=== PATIENT | male | born 1985 | race Caucasian/White ===

== ENCOUNTER 2018-08-09 08:16 | Day surgery (SDC) | payer BC ==
[~2018-08-09 08:16] MED LIST: Acetaminophen/HYDROcodone 325-5 MG Tab PO PRN; Lactated Ringers 1,000 ML IV SCH; ceFAZolin 2 GM in Premix Bag 1 BAG IV SCH
[2018-08-09] MEDS ORDERED: Lidocaine 2% 5 ML SDV ONE (09:14)
[2018-08-09] MEDS ORDERED: Ondansetron 4 MG/2 ML SDV ONE (09:14)
[2018-08-09] MEDS ORDERED: Midazolam 1 MG/ML 2 ML SDV ONE (09:14)
[2018-08-09] MEDS ORDERED: fentaNYL 250 MCG/5 ML SDV ONE (09:14)
[2018-08-09] MEDS ORDERED: ceFAZolin/Dextrose,Iso-Osmotic 2 GM/50 ML Duplex Bag IV ONE (09:14)
[2018-08-09] MEDS ORDERED: Propofol 200 MG/20 ML SDV ONE (09:14)
--- NOTE | 2018-08-09 09:35 | PCM.PREANE ---
Preanesthetic Assessment - Anesthesia/Transfusion/Family Hx Anesthesia History: Prior Anesthesia Without Reaction Family History of Anesthesia Reaction: No Transfusion History: No Prior Transfusion(s) - Review of Systems General: No Symptoms Pulmonary: No Symptoms Cardiovascular: No Symptoms Gastrointestinal: No Symptoms Neurological: No Symptoms Other: Reports: None - Physical Assessment NPO Status Date: 08/08/18 NPO Status Time: 21:52 O2 Sat by Pulse Oximetry: 96 Respiratory Rate: 18 Vital Signs: Last Vital Signs Temp 97.5 F 08/09/18 09:11 Pulse 76 08/09/18 09:11 Resp 18 08/09/18 09:11 BP 122/73 08/09/18 09:11 Pulse Ox 96 08/09/18 09:11 Height: 6 ft 1 in Weight: 90.718 kg ASA Class: 1 Mental Status: Alert & Oriented x3 Airway Class: Mallampati = 2 Dentition: Reports: Normal Dentition ROM/Head Extension: Full Lungs: Clear to Auscultation, Normal Respiratory Effort Cardiovascular: Regular Rate, Regular Rhythm - Allergies Allergies/Adverse Reactions: Allergies Allergy/AdvReac Type Severity Reaction Status Date / Time No Known Allergies Allergy Verified 05/23/18 19:46 - Blood Blood Available: No - Anesthesia Plan Pre-Op Medication Ordered: None - Acknowledgements Anesthesia Type Planned: General Anesthesia Pt an Appropriate Candidate for the Planned Anesthesia: Yes Alternatives and Risks of Anesthesia Discussed w Pt/Guardian: Yes Pt/Guardian Understands and Agrees with Anesthesia Plan: Yes Additional Comments: PMH: born 8+ weeks premature, had heart surgery at age 2-3 months, not followed by cardiology during childhood, no limitations on activity. Prednisone use was for skin rash due to industrial chemical [id number] longer on prednisone, PLAN: GET PreAnesthesia Questionnaire Cardiovascular History: Reports: Other (See Below) Musculoskeletal History: Reports: Fracture, Other (See Below) Other Musculoskeletal History: left femur fracture Neurological History: Reports: Headaches, Chronic Psychiatric History: Reports: Anxiety, Depression Dermatologic History: Reports: Other (See Below) Other Dermatologic History: contact dermatitis - Past Surgical History Head Surgeries/Procedures: Reports: None Cardiovascular Surgical History: Reports: Other (See Below) Other Cardiovascular Surgeries/Procedures: 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 Musculoskeletal Surgical History: Reports: Other (See Below) Other Musculoskeletal Surgeries/Procedures:: surgical tx for fx left femur, left hand surgery - SUBSTANCE USE Smoking Status *Q: Never Smoker Recreational Drug Use History: No - HOME MEDS Home Medications: Home Meds FLUoxetine HCl [Fluoxetine] 20 tab PO DAILY 08/04/14 [History] Triamcinolone Acetonide [Triamcinolone Acetonide 0.1% Crm] 1 applic TOP ASDIRECTED PRN 08/05/18 [History] hydrOXYzine HCl [hydrOXYzine] 25 mg PO ASDIRECTED PRN 08/05/18 [History] - CURRENT (IN HOUSE) MEDS Current Meds: Current Medications Hydrocodone Bitart/Acetaminophen ([place] 325-5 Mg) 1 - 2 tab PO Q4H PRN PRN Reason: Pain Cefazolin Sodium/Dextrose 2 gm (/ Premix) 50 mls @ 100 mls/hr IV ONCALL FRANCINE Lactated Ringer's (Ringers, Lactated) 1,000 mls @ 100 mls/hr IV ASDIRECTED FRANCINE Last Admin: 08/09/18 09:00 Dose: 100 mls/hr Discontinued Medications Cefazolin Sodium/Dextrose (Ancef) Confirm Administered Dose 2 gm IV .STK-MED ONE Stop: 08/09/18 09:15 Fentanyl (Sublimaze) Confirm Administered Dose 250 mcg .ROUTE .STK-MED ONE Stop: 08/09/18 09:15 Lidocaine (Xylocaine-Mpf 2%) Confirm Administered Dose 5 ml .ROUTE .STK-MED ONE Stop: 08/09/18 09:15 Midazolam HCl (Versed 1 Mg/Ml) Confirm Administered Dose 2 mg .ROUTE .STK-MED ONE Stop: 08/09/18 09:15 Ondansetron HCl (Zofran) Confirm Administered Dose 4 mg .ROUTE .STK-MED ONE Stop: 08/09/18 09:15 Propofol (Diprivan 20 Ml) Confirm Administered Dose 200 mg .ROUTE .STK-MED ONE Stop: 08/09/18 09:15
[2018-08-09] MEDS ORDERED: Dexamethasone 4 MG/ML 5 ML MDV ONE (10:16)
[2018-08-09] MEDS ORDERED: Ketorolac 30 MG/ML SDV ONE (10:40)
--- NOTE | 2018-08-09 10:49 | PCM.OPNOTE ---
- General Post-Op/Procedure Note Date of Surgery/Procedure: 08/09/18 Operative Procedure(s): L knee scope with PMM and excision of medial plica Post-Op Diagnosis: L knee med meniscus tear and medial plica Anesthesia Technique: General LMA Primary Surgeon: Sonia Olmos Blow Molder: Stephenie Oropeza in mLs: 5 Condition: Good Free Text/Narrative:: tt=13 min #[id number]
[2018-08-09] MEDS ORDERED: Atropine 0.4 MG/ML SDV IVPUSH PRN (11:11)
[2018-08-09] MEDS ORDERED: 50% Dextrose in Water 50 ML Syringe IVPUSH PRN (11:11)
[2018-08-09] MEDS ORDERED: Naloxone 0.4 MG/ML Syringe IVPUSH PRN (11:11)
[2018-08-09] MEDS ORDERED: fentaNYL 100 MCG/2 ML SDV IVPUSH PRN (11:11)
[2018-08-09] MEDS ORDERED: EPINEPHrine 1 MG/ML 30 ML MDV IVPUSH PRN (11:11)
[2018-08-09] MEDS ORDERED: Atropine 0.4 MG/ML 20 ML MDV IVPUSH PRN (11:11)
--- NOTE | 2018-08-09 11:49 | PCM.POSTAN ---
POST ANESTHESIA ASSESSMENT - MENTAL STATUS Mental Status: Alert, Oriented - RESPIRATORY Respiratory Status: Respiratory Rate WNL, Airway Patent, O2 Saturation Stable - CARDIOVASCULAR CV Status: Pulse Rate WNL, Blood Pressure Stable - GASTROINTESTINAL GI Status: No Symptoms - POST OP HYDRATION Hydration Status: Adequate & Stable
--- NOTE | 2018-08-09 11:50 | PCM48HPAN ---
Post Anesthesia Note - EVALUATION WITHIN 48HRS OF ANESTHETIC Vital Signs in Normal Range: Yes Patient Participated in Evaluation: Yes Respiratory Function Stable: Yes Airway Patent: Yes Cardiovascular Function Stable: Yes Hydration Status Stable: Yes Pain Control Satisfactory: Yes Nausea and Vomiting Control Satisfactory: Yes Mental Status Recovered: Yes Resp Rate: 16
[2018-08-09 11:57] VITALS: BP 109/76
--- NOTE | 2018-08-09 12:47 | OR ---
SURGEON: Sonia Olmos MD DATE OF PROCEDURE: 08/09/2018 PREOPERATIVE DIAGNOSIS: Left knee medial meniscus tear. POSTOPERATIVE DIAGNOSES: 1. Left knee medial meniscus tear. 2. Left knee medial plica. PROCEDURES: Left knee arthroscopy with partial medial meniscectomy and excision of medial plica. COOKING INSTRUCTOR: Stephenie Oropeza PA-C ANESTHESIA: General. ESTIMATED BLOOD LOSS: 5 mL. TOURNIQUET TIME: 13 minutes. COMPLICATIONS: None. DVT PROPHYLAXIS: Not indicated. IMPLANTS USED: None. BRIEF HISTORY: Vinnie is a 33-year-old male who has had complaint of progressive left knee pain. He had failed conservative treatment. Due to his lack of response to conservative treatment, I did recommend surgical intervention. The risks and goals of procedure were discussed with the patient and were documented preoperatively. He agreed to proceed. DESCRIPTION OF PROCEDURE: The patient was properly identified and brought to the operating room. He was transferred from the OR cart and placed on the operating table in supine position. General anesthesia was administered. After adequate anesthesia was obtained, a well-padded tourniquet was applied to the left lower extremity. The left lower extremity was then prepped in standard fashion using ChloraPrep solution. It was then sterilely draped. A time-out was performed to ensure correct site and procedure. Preoperative antibiotics were given. The surgical site had been marked preoperatively. An Esmarch was used to exsanguinate the left lower extremity and the tourniquet was inflated to 250 mmHg. Lateral portal arthrotomy was established. Blunt trocar and cannula were introduced into the suprapatellar space. Camera, inflow, and outflow were assembled. There did not appear to be any evidence of synovitis within the suprapatellar space. The patellofemoral joint was then visualized. Minor degenerative changes were noted. The patella appeared to track centrally. I then extended down the lateral gutter. No loose bodies were identified. As I extended down the medial gutter, there was evidence of medial plica. The knee was again taken through flexion and extension, which confirmed that there appeared to be some impingement of the medial plica on the medial femoral condyle. No wearing of the cartilage was noted. I then extended down the medial gutter. No loose bodies were identified. I then entered the medial compartment. A medial portal arthrotomy was established. A blunt probe was inserted. The meniscus was probed. He was found to have a degenerative full-thickness tear through the posterior horn of the medial meniscus. Using a combination of biters and shaver, this was resected back to a stable remnant. The joint surfaces were inspected. Grade 1 chondromalacia was noted. I then examined the medial meniscus root. There is a small superficial tear of the meniscus in this region as well. This was resected with a shaver. It was again probed and the remainder of the meniscus was stable. I then entered the notch. Both the ACL and PCL were visualized, probed, and found to be intact. The lateral compartment was then inspected. Minor grade 1 chondromalacia was noted along the lateral tibial plateau. No significant degenerative changes were noted along the lateral femoral condyle. Meniscus was probed and found to be stable. I then entered the suprapatellar area again. The medial plica was identified. This was resected with a shaver. No further impingement was noted on the medial femoral condyle. Instruments were then removed from the knee. The portal sites were closed with 3-0 nylon. 1% Lidocaine was injected along the portal tracts. Xeroform gauze was placed over the wound and a bulky dressing was applied. The tourniquet was then deflated. He was awakened from his anesthetic and transferred back to the operating room cart. He was brought to recovery room in stable condition. All needle and sponge counts were correct. ESTEFANIA ROLON /[id number]
== END 2018-08-09 12:17 | disposition home or self-care (01) ==
LOC: MW.SDS 08:16
PROVIDERS: ATTEND Orthopaedic Surgery
DX: M23.222 Derangement of posterior horn of medial meniscus due to old tear or injury, left knee (principal); M67.52 Plica syndrome, left knee; M94.262 Chondromalacia, left knee; F32.9 Major depressive disorder, single episode, unspecified; Z79.899 Other long term (current) drug therapy
CPT/HCPCS: 29881; J0690; J1100; J1885; J2001; J2250; J2405; J2704; J3010; J7120; 88304